=== PATIENT | female | born 1975 | race Caucasian/White ===

== ENCOUNTER → 2023-06-05 12:39 | Outpatient (CLI) | payer OTHER, SELFPAY | PROVIDERS: Visit Provider Family Medicine | DX: N89.8 Other specified noninflammatory disorders of vagina (principal) | CPT/HCPCS: 87210 ==

== ENCOUNTER → 2023-07-31 09:06 | Outpatient (CLI) | payer OTHER, SELFPAY | PROVIDERS: PCP Family Medicine; Visit Provider Physician Assistant | DX: R30.0 Dysuria (principal) | CPT/HCPCS: 87077; 87086; 87186; 87210 ==

== ENCOUNTER → 2023-08-09 09:28 | Outpatient (CLI) | payer OTHER, SELFPAY ==
[2023-08-09 10:58] LABS: Cholesterol 178 mg/dL (140-199); Glucose 92 mg/dL (70-100); HDL Cholesterol 66 mg/dL (40-60); LDL Cholesterol Calculated 99 mg/dL (<100); Triglycerides 64 mg/dL (35-150)
== END ==
PROVIDERS: PCP Family Medicine; Referring Provider Family Medicine; Visit Provider Family Medicine
DX: E05.90 Thyrotoxicosis, unspecified without thyrotoxic crisis or storm (principal); Z13.1 Encounter for screening for diabetes mellitus; R73.9 Hyperglycemia, unspecified; E78.5 Hyperlipidemia, unspecified
CPT/HCPCS: 36415; 80061; 82947; 84443; 84481

== ENCOUNTER → 2023-09-18 08:00 | Outpatient (CLI) | payer OTHER, SELFPAY | PROVIDERS: PCP Family Medicine; Visit Provider Student in an Organized Health Care Education/Training Program | DX: R30.0 Dysuria (principal); N89.8 Other specified noninflammatory disorders of vagina | CPT/HCPCS: 87086; 87210 ==

== ENCOUNTER → 2023-10-30 11:20 | Outpatient (CLI) | payer OTHER, SELFPAY ==
--- NOTE | 2023-10-30 | DI.MG.S_ITS ---
BILATERAL DIGITAL SCREENING MAMMOGRAM 3D/2D WITH CAD: 10/30/2023 CLINICAL: Routine screening. Family history of breast cancer. Comparison is made to exams dated: 10/25/2022 mammogram, 06/16/2021 mammogram, and 11/29/2018 mammogram - out side. Both breasts are heterogeneously dense, which may obscure small masses (category c / 51-75% glandular tissue). Current study was also evaluated with a Computer Aided Detection (CAD) system. There are benign calcifications in the left breast. No significant masses, calcifications, or other findings are seen in either breast. There has been no significant interval change. IMPRESSION: BENIGN There is no mammographic evidence of malignancy. A 1 year screening mammogram is recommended. Based on Tyrer-Cuzick model (a risk assessment model), the patient's lifetime risk is 20.5% and her 10 year risk is 4.8%. If a patient has an elevated risk, a more comprehensive evaluation should be considered and/or a referral to a genetic counselor. The [employer], [employer], and NCCN Guidelines advise the consideration of Breast MRI as an adjunct to screening mammography in patients whose Lifetime risk to develop breast cancer is 20% or higher. This exam was interpreted at Station ID: [id number]. NOTE: For mammograms, a report in lay terms will be sent to the patient. Approximately 15% of breast malignancies will not be visualized mammographically. In the management of a palpable breast mass, a negative mammogram must not discourage biopsy of a clinically suspicious lesion. Electronically Signed By: Luciano gutierrez/bita:11/05/2023 16:48:59 letter sent: Normal Exam ACR BI-RADS Category 2: Benign Finding(s) 3342F
== END ==
LOC: MAMMO 11:21
PROVIDERS: PCP Family Medicine; Referring Provider Family Medicine; Visit Provider Family Medicine
DX: Z12.31 Encounter for screening mammogram for malignant neoplasm of breast (principal); Z80.3 Family history of malignant neoplasm of breast; R92.333 Mammographic heterogeneous density, bilateral breasts
CPT/HCPCS: 77063; 77067

== ENCOUNTER → 2023-12-12 11:48 | Outpatient (CLI) | payer OTHER, SELFPAY ==
--- NOTE | 2023-12-12 11:50 | DI.MRI.S_ITS ---
BREAST MRI OF BOTH BREASTS: 12/12/2023 CLINICAL: High risk screening. PROCEDURE: MR BREAST BI WO/W CON INDICATIONS: follow up TECHNIQUE: The patient was placed prone in a dedicated breast imaging coil. Precontrast axial STIR and 3D FLASH without fat saturation sequences were obtained. Both before and after bolus injection of contrast, sequential 1-minute axial 3D FLASH with fat saturation sequences for 3 time points, with subtraction images and maximum intensity projections (MIP's) generated. Delayed sagittal FLASH images with fat saturation were also obtained. Computer-aided detection, including computer algorithm analysis of MRI image data for lesion detection and characterization, pharmacokinetic analysis, with further physician review for interpretation, was performed. COMPARISON: None. FINDINGS: Image quality: Excellent. There is minimal background parenchymal enhancement. Right breast: No suspicious enhancement or mass lesions. Left breast: No suspicious enhancement or mass lesions. Miscellaneous: No intramammary adenopathy. No axillary adenopathy. Limited visualization of the heart, lungs, mediastinum and upper abdomen are unremarkable. IMPRESSION: NEGATIVE Negative breast MRI. Return to annual mammogram screening schedule is recommended. Future imaging is recommended as follows: 10/30/2024 screening mammogram. This exam was interpreted at Station ID: [id number]. Electronically Signed By: Whitney mendoza/:12/12/2023 15:35:30 letter sent: Normal Exam ACR BI-RADS Category 1: Negative 3341F
== END ==
LOC: MRI 11:49
PROVIDERS: PCP Family Medicine; Referring Provider Family Medicine; Visit Provider Family Medicine
DX: R92.8 Other abnormal and inconclusive findings on diagnostic imaging of breast (principal)
CPT/HCPCS: 77049; A9579

== ENCOUNTER → 2024-02-01 10:10 | Outpatient (CLI) | payer OTHER, SELFPAY ==
[2024-02-01 12:50] LABS: HEMOLYSIS < 15 (0-50); Iron 102 ug/dL (37-170)
[2024-02-01 13:01] LABS: Percent Iron Saturation 56 % (15-50); Total Iron Binding Capacity 181 ug/dL (265-497); Transferrin 138 mg/dL (206-381)
[2024-02-01 13:16] LABS: Add Manual Diff / Slide Review NO; Basophils Absolute Auto 0 /uL (0-100); Basophils Percent Auto 0.6 % (0-2); Eosinophils Absolute Auto 100 /uL (0-450); Eosinophils Percent Auto 1.4 % (2-4); Hematocrit 39.6 % (36-46); Hemoglobin 13.4 g/dL (12.0-16.0); Lymphocytes Absolute Auto 1100 /uL (1100-4500); Lymphocytes Percent Auto 27.9 % (25-40); Mean Corpuscular Hemoglobin 31.6 PG (26-34); Mean Corpuscular Volume 93.1 fL (80-100); Monocytes Absolute Auto 400 /uL (0-900); Monocytes Percent Auto 11.6 % (3-14); Neutrophils Absolute Auto 2200 /uL (1500-7000); Neutrophils Percent Auto 58.5 % (50-75); Platelet Count 194 X10^3/uL (150-400); Red Blood Cell Count 4.25 X10^6/uL (4.0-5.2); Red Cell Distribution Width 12.4 % (11.6-14.8); White Blood Cell Count 3.8 X10^3/uL (4.5-11.0)
[2024-02-01 13:40] LABS: Alanine Aminotransferase 21 IU/L (<35); Albumin 4.4 g/dL (3.5-5.0); Albumin Globulin Ratio 1.7 (1.0-2.8); Alkaline Phosphatase 47 U/L (38-126); Aspartate Aminotransferase 30 IU/L (14-36); BUN Creatinine Ratio 28.6 (6-22); Bilirubin Total 0.5 mg/dL (0.2-1.3); Blood Urea Nitrogen 20 mg/dL (7-17); Carbon Dioxide 29 mmol/L (22-32); Chloride 105 mmol/L (98-107); Estimated Glomerular Filt Rate > 60 mL/min (>60); Globulin 2.6 g/dL (1.7-4.1); Glucose 90 mg/dL (70-100); HEMOLYSIS < 15 (0-50); Potassium 4.4 mmol/L (3.4-5.1); Sodium 139 mmol/L (137-145)
[2024-02-01 14:12] LABS: Ferritin 39 ng/mL (6-137)
[2024-02-05 19:10] LABS: ANA Screen, IFA Negative (.)
== END ==
PROVIDERS: PCP Family Medicine; Referring Provider Family Medicine; Visit Provider Family Medicine
DX: R43.8 Other disturbances of smell and taste (principal); R68.2 Dry mouth, unspecified; G47.00 Insomnia, unspecified
CPT/HCPCS: 36415; 80053; 82728; 83540; 83550; 85025; 86038

== ENCOUNTER → 2024-04-15 12:32 | Outpatient (CLI) | payer OTHER, SELFPAY ==
--- NOTE | 2024-04-15 12:33 | DI.ECHO.S_ITS ---
[facility] : : [address] : : [place] : : [id number] : : Phone: [phone] Echocardiogram Report + + :Name: CLIF DEMARCO Study Date: 04/15/2024 Height: 69 in : :Hospital ReadingLocation: Weight: 155 lb : : Gender: Female BSA: 1.9 m2 : :: 1975 Age: 49 yrs BP: 126/75 mmHg: :Reason For Study: EDEMA : :Ordering Physician: KELLY, : :HERNESTO Serna Performed By: Jennifer Rojo : :Referring: HERNESTO MENDOZA R : + + Interpretation Summary 1) Normal left ventricular thickness, size, wall motion, and systolic function (EF 60-65%). 2) Normal right ventricular size and function. 3) No significant valvular abnormalities. 4) No prior Echo available for comparison. Procedure: A two-dimensional transthoracic echocardiogram with color flow and Doppler was performed. The study quality was technically adequate. There is no prior echocardiogram noted for this patient. The patient was in sinus rhythm with heart rates between 65-75 bpm during the exam. Left Ventricle: The left ventricle is normal in size and wall thickness. The ejection fraction is estimated to be 60-65%. Left ventricular systolic function appears normal without focal wall motion abnormalities. Diastolic parameters suggest probable normal left ventricular diastolic function and normal filling pressures. Right Ventricle: The right ventricle is normal in size and function. Atria: The left atrial size is normal. Right atrial size is normal. There is no Doppler evidence for an interatrial shunt. Mitral Valve: The mitral valve is normal in structure and function. There is trace mitral regurgitation. Aortic Valve: The aortic valve opens well. There is no aortic valve stenosis. No aortic regurgitation is present. Tricuspid Valve: The tricuspid valve is normal in structure and function. There is trace tricuspid regurgitation. The right ventricular systolic pressure is estimated to be at least 24 mmHg based on an estimated right atrial pressure of 3 mm Hg. Pulmonic Valve: The pulmonic valve leaflets are thin and pliable; valve motion is normal. There is trace pulmonic regurgitation. Great Vessels: The aortic root is normal size. The dimensions of the ascending aorta are normal. The IVC is of normal diameter and collapses greater than 50% with a sniff. This suggests a low right atrial pressure of 3 mm Hg. Pericardium/ Pleura There is no pericardial effusion. There is no pleural effusion. MMode/2D Measurements & Calculations LVIDd: 5.1 cm LVOT diam: 2.0 cm LVIDs: 3.4 cm Ao root diam: 2.9 cm FS: 32.8 % asc Aorta Diam: 2.9 cm IVSd: 0.64 cm Ao Arch Diam (Prox Trans): 2.5 cm LVPWd: 0.68 cm LV valencia. diameter/BSA (cm/m^2): 2.7 LV sys. diameter/BSA (cm/m^2): 1.8 LA A2 area: 15.0 cm2 RA long axis: 4.4 cm LA A4 area: 13.4 cm2 RA area: 10.6 cm2 LA length (vol): 4.9 cm RA vol: 21.7 ml LA vol: 35.3 ml RA : 11.7 ml/m2 LA vol index: 19.0 ml/m2 IVC diam: 1.6 cm RVD1 (basal): 3.0 cm TAPSE: 2.5 cm Doppler Measurements & Calculations Ao V2 max: 138.5 cm/sec LVOT Max Tomas: 112.9 cm/sec Ao V2 mean: 102.4 cm/sec LV V1 max P.1 mmHg Ao max P.7 mmHg LV V1 VTI: 26.8 cm Ao mean P.5 mmHg ADALBERTO(I,D): 2.8 cm2 Ao V2 VTI: 30.8 cm ADALBERTO(V,D): 2.6 cm2 sev ratio: 0.87 ADALBERTO indexed to BSA (cm^2/m^2): 1.5 MV E max tomas: 94.2 cm/sec TR max tomas: 231.2 cm/sec MV A max tomas: 46.1 cm/sec TR max P.4 mmHg MV E/A: 2.0 PA V2 max: 95.3 cm/sec Med Peak E' Tomas: 13.0 cm/sec PA V2 mean: 68.5 cm/sec E/E' med: 7.2 PA mean P.0 mmHg Lat Peak E' Tomas: 14.4 cm/sec PA pr(Accel): 15.6 mmHg E/E' lat: 6.5 E/e' average: 6.9 MV dec time: 0.17 sec SV(LVOT): 84.9 ml Reading Physician:02:22 PM
== END ==
PROVIDERS: PCP Family Medicine; Referring Provider Family Medicine; Visit Provider Family Medicine
DX: M79.89 Other specified soft tissue disorders (principal)
CPT/HCPCS: 93306

== ENCOUNTER → 2024-10-20 07:17 | Outpatient (CLI) | payer OTHER, SELFPAY ==
--- NOTE | 2024-10-20 07:48 | DI.MRI.S_ITS ---
PROCEDURE: MR HAND RT WO/W CON INDICATIONS: RT HAND WEAKNESS,MASS OF RIGHT HAND TECHNIQUE: Multiplanar, multisequence images of the right hand were obtained pre and post administration of 10 mL of ProHance intravenous contrast. There was no adverse reaction. COMPARISON: Outside Film, CR, XR HAND 1 OR 2 VIEWS BILATERAL, 04/30/2024, 12:55. Outside Film, CR, XR HAND 1 OR 2 VIEWS BILATERAL, 04/30/2024, 12:55. FINDINGS: Image quality: Excellent. Enhancement: There is no abnormal mass-like or nodular enhancement. Bone: The marrow signal is within normal limits. There is no pathologic fracture or dislocation. Joint: The joint spaces are preserved without any significant joint effusion in the field of view. Muscle: Overall muscle bulk is preserved. Tendon: The visualized flexor and extensor tendons are within normal limits. Nerve: The median and ulnar nerves are normal in signal and caliber. Vessels: The dominant flow voids are preserved. Other: There is minimal thickening of the fibrous sheaths along the radial aspects of the 2nd and 3rd digits at the web spaces, corresponding to the fiducial marker (8/33). IMPRESSION: Minimal thickening along the radial fibrous sheaths of the 2nd and 3rd digits at the web spaces. Consider Duputyren's contractures. Dictated by: Spencer Santacruz M.D. on 10/20/2024 at 12:59 Approved by: Spencer Santacruz M.D. on 10/20/2024 at 13:40
== END ==
PROVIDERS: PCP Family Medicine; Referring Provider Orthopaedic Surgery; Visit Provider Orthopaedic Surgery
DX: R29.898 Other symptoms and signs involving the musculoskeletal system (principal); R22.31 Localized swelling, mass and lump, right upper limb
CPT/HCPCS: 73220; A9579

== ENCOUNTER → 2024-11-03 | Outpatient (CLI) | payer OTHER, SELFPAY ==
--- NOTE | 2024-11-03 15:47 | DI.MG.S_ITS ---
MM screening mammo BI: 11/03/2024. BI-RADS: 1 CLINICAL: 49-year old female for bilateral screening mammogram. Tyrer-Cuzick lifetime risk of 15.5%. No personal or first-degree family history of breast cancer. Current reported family history of breast cancer: maternal grandmother. PRIOR EXAMS 12/12/2023, 10/30/2023. MAMMOGRAPHY TECHNIQUE: 2D and 3D (tomosynthesis) digital mammographic views obtained, with additional images as needed for full coverage. Current study was also evaluated with a Computer Aided Detection (CAD) system. DENSITY C. The breasts are heterogeneously dense, which may obscure small masses. MAMMOGRAPHY FINDINGS Bilateral: No suspicious mass, asymmetry, microcalcification, or other abnormality seen. IMPRESSION: * No evidence of malignancy. RECOMMENDATIONS Bilateral * Annual screening mammography. OVERALL ASSESSMENT CATEGORY BI-RADS-1: Negative. The [employer] recommends annual screening mammography beginning at age 40 for women with average risk of breast cancer. ELECTRONICALLY SIGNED: Koki Flores M.D. on 11/04/2024 at 10:23:01 AM PT Interpreting Station ID: [id number]
== END ==
LOC: MAMMO 15:46
PROVIDERS: PCP Nurse Practitioner Family; Referring Provider Family Medicine; Visit Provider Family Medicine
DX: Z12.31 Encounter for screening mammogram for malignant neoplasm of breast (principal); Z80.3 Family history of malignant neoplasm of breast; R92.333 Mammographic heterogeneous density, bilateral breasts
CPT/HCPCS: 77063; 77067

== ENCOUNTER → 2025-01-06 10:05 | Outpatient (CLI) | payer OTHER, SELFPAY | PROVIDERS: PCP Nurse Practitioner Family; Visit Provider Nurse Practitioner Family | DX: N89.8 Other specified noninflammatory disorders of vagina (principal) | CPT/HCPCS: 87086; 87210 ==

== ENCOUNTER → 2025-05-15 16:40 | Outpatient (CLI) | payer OTHER, SELFPAY | PROVIDERS: PCP Nurse Practitioner Family; Visit Provider Family Medicine | DX: B37.9 Candidiasis, unspecified (principal) | CPT/HCPCS: 87210 ==